=== PATIENT | male | born 1960 | race African-American/Black ===

== ENCOUNTER 2024-12-20 14:46 | Emergency (ER) | payer MEDICAID, SELFPAY ==
[2024-12-20 14:47] VITALS: BP 176/99; PULSE 87; RESP 16; TEMP 36.7; O2SAT 100; BMI 22.7
--- NOTE | 2024-12-20 17:45 | RAD_ITS ---
PROCEDURE: Right ankle radiographs REASON FOR EXAM: Pain TECHNIQUE: 3 views of the right ankle COMPARISON: None FINDINGS: See impression RAD/Ankle min 3 Views IMPRESSION: Near-complete healing of the distal fibular fracture with intact plate/screw fi xation hardware. Very subtle faint fracture line still visible. Tight rope was also placed. No new acute fracture or malalignm ent. Ankle mortise is congruent. Pes planus. Reading Location: [facility]
[2024-12-20 18:46] VITALS: BP 154/78; PULSE 64; RESP 16; TEMP 37.1; O2SAT 99
--- NOTE | 2024-12-20 19:02 | ED.VIS.LOWEX ---
HPI History of Present Illness Chief Complaint: Lower Extremity Injury Detail of Chief Complaint: Problems with cast Informant: patient Occured/Mechanism Comment: Was not able to use his crutches and walking on his cast Onset/Context/Timing Onset: Yesterday Context: Sudden Onset Timing: Continuous Location: Patient denies pain. Current Severity: Bottom of cast has been destroyed Worsened by: Patient was out in the rain without crutches and walked on his cast Relieved by: Not applicable Narrative Narrative: Patient is a 64-year-old male. He had open reduction internal fixation of a bimalleolar fracture right ankle by Dr. Margot Loera at outside facility. Patient presents from group home because his cast is coming apart. He states he was asleep in the backseat of his car. Since he had the keys in the vehicle he was charged with DUI. They would not allow him to take his crutches. He had to walk on it in the rain. He now presents to have a splint/cast applied. I communicated with Dr. Loera. X-rays were obtained. Images were sent to her. Patient will be placed in a short leg cast. Prior similar symptoms: Yes Recent Illness/Hospitalization: Yes [facility] Medical History Anxiety Restless leg syndrome Hypertension Home Medications ?Medication ?Instructions ?Recorded ?Last Taken ?Type amantadine HCl 100 mg capsule 100 mg PO BID HTN 12/20/24 Unknown History aspirin 81 mg tablet,delayed 81 mg PO BID 12/20/24 Unknown History release baclofen 10 mg tablet 10 mg PO BID 12/20/24 Unknown History bupropion HCl 150 mg 24 hr tablet, 150 mg PO DAILY 12/20/24 Unknown History extended release lisinopril 40 mg tablet 40 mg PO DAILY 12/20/24 Unknown History naltrexone 50 mg tablet 50 mg PO DAILY 12/20/24 Unknown History oxycodone-acetaminophen 5 mg-325 1 tab PO QHS PRN PRN pain 12/20/24 Unknown History mg tablet prazosin 2 mg capsule 2 mg PO QHS RESTLESS LEG 12/20/24 Unknown History trazodone 100 mg tablet 100 mg PO QHS 12/20/24 Unknown History Allergy/AdvReac Type Severity Reaction Status Date / Time Penicillins (PCN) Allergy Intermediate Swelling Verified 12/20/24 14:50 phenytoin (From Dilantin) Allergy Intermediate Swelling Verified 12/20/24 14:50 Social History (Updated 12/20/24 @ 19:[address] Arturo Yuan MD) household members: spouse Smoking Status: Current every day smoker tobacco type: cigarettes, pipe, cigars and e-cigarettes EXAM Physical Exam Const Vital Signs: 12/20/24 14:47 Temperature 98.1 F Temperature Source Temporal Pulse Rate 87 Respiratory Rate 16 Blood Pressure 176/99 H Blood Pressure Mean 124 Pulse Ox 100 Oxygen Delivery Method Room Air Positive well nourished and well developed General Appearance ED: well developed and NAD HEENT normocephalic and atraumatic Chest Wall inspection of chest normal Resp normal respiratory effort Cardio regular rate and regular rhythm Extremity Extremity Narrative: Toes appear normal. Will remove cast and inspect the incision sites. Neuro oriented x3, CN's II-XII intact bilaterally, moves all extremities and no sensory deficits noted Sensorium / Orientation: alert Motor Exam: strength 5/5 throughout Plantar Reflex: Downgoing: bilateral Psych mental status grossly normal Skin Skin Narrative: Well-healing incision sites without evidence infection MDM MDM MDM Narrative Medical decision making narrative: Three-view x-ray of the ankle was obtained. Patient's hardware is intact with good alignment. The fractures are essentially healed. The films were reviewed with Dr. Loera. Patient was placed in a short leg fiberglass cast. This was applied by [place]. Patient was discharged with crutches and appropriate home-going structures. He was informed that Dr. Loera will contact him for follow-up. Radiography Chest X-Ray - ED: Read by ED Physician (Documented under the MDM portion of the EMR) Diagnostic Testing: Clinical Impression(s) from Imaging Studies Ankle X-Ray 12/20/24 17:45 IMPRESSION: Near-complete healing of the distal fibular fracture with intact plate/screw fixation hardware. Very subtle faint fracture line still visible. Tight rope was also placed. No new acute fracture or malalignment. Ankle mortise is congruent. Pes planus. Reading Location: [facility] Procedures Other Procedures Procedure(s): Short leg fiberglass cast fabricated/applied by [place] Discharge Plan Triage Chief Complaint: Lower Extremity Injury ED Provider: Arturo Yuan Dx/Rx/DC Orders Clinical Impression: Cast removal, Nondisplaced bimalleolar fracture of right ankle Instructions: Cast Care, Ankle Fracture ORIF Prescriptions: No Action aspirin 81 mg tablet,delayed release (DR/EC) 81 mg PO BID amantadine HCl 100 mg capsule 100 mg PO BID naltrexone 50 mg tablet 50 mg PO DAILY oxycodone-acetaminophen 5-325 mg tablet 1 tab PO QHS PRN PRN (Reason: pain) baclofen 10 mg tablet 10 mg PO BID bupropion HCl 150 mg tablet extended release 24 hr 150 mg PO DAILY prazosin 2 mg capsule 2 mg PO QHS trazodone 100 mg tablet 100 mg PO QHS lisinopril 40 mg tablet 40 mg PO DAILY Primary Care Provider: Care Physician,No Primary Referrals: Care Physician,No Primary [Primary Care Provider] - Activity Restrictions/Additional Instructions: Dr. Loera will contact you for follow-up. No weight to be placed on your right foot Elevate your foot is much as possible Print Language: Georgian Disposition Disposition: Home, Self Care
== END 2024-12-20 19:45 | disposition home or self-care (01) ==
PROVIDERS: Emergency Provider Emergency Medicine; Visit Provider Emergency Medicine
DX: S82.841A Displaced bimalleolar fracture of right lower leg, initial encounter for closed fracture (principal); F17.210 Nicotine dependence, cigarettes, uncomplicated; I10 Essential (primary) hypertension; Z79.82 Long term (current) use of aspirin; Z79.899 Other long term (current) drug therapy; G25.81 Restless legs syndrome; F17.290 Nicotine dependence, other tobacco product, uncomplicated
CPT/HCPCS: 29515; 73610; 99283